=== PATIENT | female | born 1970 | race Caucasian/White ===

== ENCOUNTER 2019-10-09 13:04 | Emergency (ER) | payer BC ==
[2019-10-09] MEDS ORDERED: Ibuprofen 800 MG TAB ONE (13:33)
[2019-10-09] MEDS ORDERED: HYDROcodone/Acetaminophen 5/325 mg Tablet ONE (13:33)
--- NOTE | 2019-10-09 13:44 | RAD ---
LEFT ANKLE THREE VIEWS: 10/09/19 HISTORY: Left ankle injury. There is soft tissue swelling adjacent to the lateral malleolus. There is a nondis placed fracture of the tip of the fibula. No associated medial malleolar fracture seen. Joint effusio n is noted. Calcaneal spurs are seen. IMPRESSION: Nondisplaced fracture of the tip of the fibula. POS: [facility]
== END 2019-10-09 14:00 | disposition home or self-care (01) ==
LOC: BURERS 13:04
DX: S82.832A Other fracture of upper and lower end of left fibula, initial encounter for closed fracture (principal); E03.9 Hypothyroidism, unspecified; W18.42XA Slipping, tripping and stumbling without falling due to stepping into hole or opening, initial encounter